=== PATIENT | female | born 1955 | race Caucasian/White ===

== ENCOUNTER 2017-06-12 09:31 | Day surgery (SDC) | payer MEDICARE, MEDICAID ==
[2017-06-12] MEDS ORDERED: TRIAMCINOLONE ACETONIDE SUSP 40 MG/ML 1 ML ONE (09:49)
[2017-06-12] MEDS ORDERED: BUPIVACAINE 0.25% 75 MG/30 ML VIAL ONE (09:49)
[2017-06-12] MEDS ORDERED: IOHEXOL 50 ML IV ONE (09:49)
[2017-06-12] MEDS ORDERED: methylPREDNISolone ACETATE 80 MG/ML VIAL ONE (09:50)
== END 2017-06-12 10:30 ==
LOC: DS 09:31
PROVIDERS: ATTEND Anesthesiology
DX: M53.3 Sacrococcygeal disorders, not elsewhere classified (principal); M47.817 Spondylosis without myelopathy or radiculopathy, lumbosacral region; M16.9 Osteoarthritis of hip, unspecified; M17.9 Osteoarthritis of knee, unspecified; M79.7 Fibromyalgia; Z86.19 Personal history of other infectious and parasitic diseases; G62.9 Polyneuropathy, unspecified; Z79.899 Other long term (current) drug therapy
CPT/HCPCS: G0260 ×5; 72170-TC; J1040; J3490; Q9967

== ENCOUNTER 2019-03-18 00:41 | Inpatient (IN) | payer MEDICARE, OTHER ==
[~2019-03-18] VITALS: Ht 154.9 cm; Wt 48.5 kg
--- NOTE | 2019-03-18 02:25 | NUR ---
GPS ADMISSION NOTES: ADMITTED A 63-YR OLD FEMALE, FROM [facility]. ON 5150 FOR DTS. PER HOLD, PATIENT ATTEMPTED TO STAB HERSELF WITH A BALL POINT PEN AND THEN WITH A TREE BRANCH. STATED " I DON'T WANT TO BE HERE ANYMORE". "I NEED TO FIND A KNIFE". "I DON'T DESERVE TO LIVE NOBODY CARES ABOUT ME". UPON FACE TO FACE ASSESSMENT, PATIENT IS ALERT AND ORIENTED X1-2, CALM, DEPRESSED MOOD, UNKEMPT, INTERACTS WHEN ENGAGED, COOPERATIVE WITH CARE, AMBULATORY WITH STEADY GAIT. PT. DENIES SI/HI/AVH AT THIS TIME. PT. WAS ADVISED OF THE HOLD. PT'S RIGHTS DISCUSSED GUIDE TO PRESCRIPTION MEDICATIONS PROVIDED. IN NO APPARENT DISTRESS NOTED. BELONGINGS WERE INVENTORIED AND CHECKED FOR CONTRABAND. PT IS UNDER THE PSYCHIATRIC CARE OF DR. CHOWDARY ORDERS OBTAINED, AND UNDER THE MEDICAL CARE OF DR. ANDRE. SKIN BODY ASSESSMENT PERFORMED. BED LOCKED AND PLACED IN LOWEST POSITION. FALL PRECAUTIONS IN PLACE. WILL CONTINUE TO MONITOR Q15 MIN ROUNDS FOR SAFETY AND BEHAVIOR.
[2019-03-18] MEDS ORDERED: MAG HYDROX/AL HYDROX/SIMETH 30 ML UDC PO PRN (03:00)
[2019-03-18] MEDS ORDERED: MAGNESIUM HYDROXIDE 30 ML UDC PO PRN (03:00)
[2019-03-18] MEDS ORDERED: BLOOD SUGAR DIAGNOSTIC 1 EACH STRIP IN ONE (03:00)
[2019-03-18] MEDS ORDERED: ACETAMINOPHEN 325 MG TABLET PO PRN (03:00)
[2019-03-18 04:59] VITALS: BP 129/80
[2019-03-18] MEDS ORDERED: clonazePAM 0.5 MG TABLET PO SCH (05:00)
[2019-03-18] MEDS ORDERED: BUPR1PAT3 TP (05:37)
[2019-03-18] MEDS ORDERED: SUBUTEX SL (05:37)
[2019-03-18] MEDS ORDERED: DOCU-141 PO (05:37)
[2019-03-18] MEDS ORDERED: BACL10TA PO (05:37)
[2019-03-18] MEDS ORDERED: CYAN-51 SL (05:37)
[2019-03-18] MEDS ORDERED: LEVE500T9 PO (05:37)
[2019-03-18] MEDS ORDERED: MELA5TAB PO (05:37)
[2019-03-18] MEDS ORDERED: DEXT1CAP3 PO (05:37)
[2019-03-18] MEDS ORDERED: PREG50CA PO (05:37)
[2019-03-18] MEDS ORDERED: IPRA4AER IH (05:37)
[2019-03-18] MEDS ORDERED: DICL100G16 TP (05:37)
[2019-03-18] MEDS ORDERED: GABA-534 PO (05:37)
[2019-03-18] MEDS ORDERED: SUMA100T PO (05:37)
[2019-03-18] MEDS ORDERED: TRAZ-252 PO (05:37)
[2019-03-18 07:42] LABS: ALBUMIN 3.4 g/dL (3.4-5.0); BILIRUBIN,TOTAL 0.6 mg/dL (0.2-1.0); CALCIUM, SERUM 8.6 mg/dL (8.5-10.1); CREATININE 0.5 mg/dL (0.6-1.3); POTASSIUM 3.9 mmol/L (3.5-5.1); TOTAL PROTEIN, SERUM 7.2 g/dL (6.4-8.2)
[2019-03-18 08:00] VITALS: BP 129/67
[2019-03-18] MEDS: NICOTINE PATCH (14MG) 14 MG PATCH.TD24 TD SCH (08:38)
[2019-03-18] MEDS: BACLOFEN (10 MG) 10 MG TABLET PO PRN ×2 (10:24→16:48)
[2019-03-18] MEDS: GABAPENTIN 300 MG CAPSULE PO PRN ×2 (10:24→16:48)
[2019-03-18] MEDS: PREGABALIN 25 MG CAPSULE PO SCH ×2 (10:53→16:48)
[2019-03-18] MEDS: LEVETIRACETAM (250 MG) 250 MG TABLET PO SCH ×2 (11:00→21:29)
--- NOTE | 2019-03-18 15:49 | NUR ---
INITIAL DISCHARGE PLAN: Patient states that she wishes to be discharged to a long term in [place] but also states that she is receptive to SNF placement and being referred to [facility]. SW will help form a safe and proper discharge in collaboration with .
[2019-03-18 16:00] VITALS: BP 141/80
[2019-03-18] MEDS ORDERED: TRAZODONE 50 MG TABLET PO PRN (16:30)
[2019-03-18] MEDS: DOCUSATE SODIUM 100 MG CAPSULE PO SCH (16:48)
[2019-03-18] MEDS: clonazePAM 0.5 MG TABLET PO PRN (17:25)
[2019-03-18] MEDS: ESCITALOPRAM OXALATE (10 MG) 10 MG TABLET PO SCH (17:25)
[2019-03-18 20:23] VITALS: BP 127/71
[2019-03-18] MEDS: ARIPIPRAZOLE 5 MG TABLET PO SCH (21:29)
[2019-03-18] MEDS ORDERED: Medication Not On Formulary EA (Melatonin 10 MG) PO SCH (22:00)
[2019-03-19 07:43] LABS: CREATININE 0.5 mg/dL (0.6-1.3)
[2019-03-19 08:00] VITALS: BP 132/74
[2019-03-19] MEDS: NICOTINE PATCH (14MG) 14 MG PATCH.TD24 TD SCH (08:23)
[2019-03-19] MEDS: LEVETIRACETAM (250 MG) 250 MG TABLET PO SCH ×2 (08:23→21:18)
[2019-03-19] MEDS: ESCITALOPRAM OXALATE (10 MG) 10 MG TABLET PO SCH (08:23)
[2019-03-19] MEDS: GABAPENTIN 300 MG CAPSULE PO PRN ×2 (08:24→16:23)
[2019-03-19] MEDS: PREGABALIN 25 MG CAPSULE PO SCH ×2 (08:24→16:23)
[2019-03-19] MEDS: DOCUSATE SODIUM 100 MG CAPSULE PO SCH ×2 (08:24→16:23)
[2019-03-19] MEDS: BACLOFEN (10 MG) 10 MG TABLET PO PRN ×2 (08:24→16:23)
[2019-03-19] MEDS: clonazePAM 0.5 MG TABLET PO PRN ×2 (08:56→16:39)
--- NOTE | 2019-03-19 15:31 | NUR ---
Group Note: SW encouraged pt to attend group therapy on 03/19/19 at 2:30pm discussing anger management for when they are in the hospital and for once they are discharged but the pt was unable to attend. Pt is sleeping and is not easily aroused.
[2019-03-19 16:00] VITALS: BP 137/75
[2019-03-19 20:00] VITALS: BP 135/86
[2019-03-19] MEDS: ARIPIPRAZOLE 5 MG TABLET PO SCH (21:17)
[2019-03-19] MEDS: TRAZODONE 50 MG TABLET PO PRN (21:18)
[2019-03-20 08:00] VITALS: BP 147/87
[2019-03-20] MEDS: DOCUSATE SODIUM 100 MG CAPSULE PO SCH ×2 (08:46→17:17)
[2019-03-20] MEDS: ESCITALOPRAM OXALATE (10 MG) 10 MG TABLET PO SCH (08:46)
[2019-03-20] MEDS: PREGABALIN 25 MG CAPSULE PO SCH ×2 (08:46→17:17)
[2019-03-20] MEDS: LEVETIRACETAM (250 MG) 250 MG TABLET PO SCH ×2 (08:47→21:54)
[2019-03-20] MEDS: clonazePAM 0.5 MG TABLET PO PRN ×2 (08:58→17:21)
[2019-03-20] MEDS: NICOTINE PATCH (14MG) 14 MG PATCH.TD24 TD SCH (08:59)
--- NOTE | 2019-03-20 09:00 | NUR ---
GPS/RN-NOTES PATIENT SCREAMING AND YELLING AT THE GREENHOUSE OR NURSERY TRANSPLANTER STATED" I WANT MY KLONOPIN YOU S NURSE, IT'S A ROUTINE MEDICATIONS". GREENHOUSE OR NURSERY TRANSPLANTER EXPLAINED THAT KLONOPIN IS PRN ORDER. PATIENT CONTINUE SCREAMING AND THREATENING TO FILE A GRIEVANCE AGAINST THE GREENHOUSE OR NURSERY TRANSPLANTER. GREENHOUSE OR NURSERY TRANSPLANTER OFFERED THE KLONOPIN PRN ORDER. KLONOPIN 0.5MG P.O GIVEN. WILL CONT. MONITORING FOR SAFETY AND BEHAVIOR.
--- NOTE | 2019-03-20 10:00 | NUR ---
GPS/RN-NOTES PATIENT IN THE DAY ROOM WATCHING TV,CALM,NO ACUTE DISTRESS NOTED.
--- NOTE | 2019-03-20 10:33 | NUR ---
WOUND CARE CONSULT: PT PRESENTS AMBULATORY AND CONTINENT WITH SCARRING TO LEGS, DRY SCAB TO LEFT HAND AND TO RT KNEE, PRESENT ON ADMISSION. NO SIGN OF INFECTION, NO DRAINAGE OR TENDERNESS NOTED. WILL SEE PRN.
--- NOTE | 2019-03-20 11:22 | NUR ---
SW spoke to the pt in her room and informed her about snf placements as she was concerned about her discharge. The SW stated that referrals will get sent out for her when it is appropriate to do so. She stated that she has important doctors appointments that she needs to keep so the SW stated that she should consider what she wants as her discharge plan to discuss with her SW.
[2019-03-20] MEDS: BACLOFEN (10 MG) 10 MG TABLET PO PRN (12:14)
--- NOTE | 2019-03-20 12:15 | NUR ---
GPS/RN-NOTES PATIENT REQUESTING BACLOFEN FOR BACK SPASM. BACLOFEN 10 MG P.O GIVEN PRN ORDER. WILL CONT. MONITORING FOR SAFETY AND BEHAVIOR.
[2019-03-20 16:00] VITALS: BP 151/92
--- NOTE | 2019-03-20 17:21 | NUR ---
GPS/RN-NOTES PATIENT REQUESTING KLONOPIN FOR ANXIETY. KLONOPIN 0.5MG P.O GIVEN PRN ORDER. WILL CONT. MONITORING FOR SAFETY AND BEHAVIOR.
--- NOTE | 2019-03-20 18:30 | NUR ---
GPS/RN-NOTES PATIENT IN THE DAY ROOM WATCHING TV ,CALM NO ACUTE DISTRESS NOTED. WILL ENDORSE TO INCOMING NURSE FOR CONTINUITY OF CARE.
[2019-03-20 20:56] VITALS: BP 133/82
[2019-03-20] MEDS: ARIPIPRAZOLE 5 MG TABLET PO SCH (21:13)
[2019-03-20] MEDS ORDERED: LEVETIRACETAM (250 MG) 250 MG TABLET PO ONE (21:48)
--- NOTE | 2019-03-20 21:54 | NUR ---
GPS-RN LEVETIRACETAM IS NOT AVAILABLE IN [facility]. NURSE TRIPOLER NOTIFIED AND PULLED OUT MED IN OTHER UNIT. ADMINISTERED KEPPRA 750MG PO ORDERED.
[2019-03-20] MEDS: TRAZODONE 50 MG TABLET PO PRN (22:04)
[2019-03-20] MEDS: TEMAZEPAM 7.5 MG CAPSULE PO PRN (22:56)
[2019-03-21 08:00] VITALS: BP 154/90
[2019-03-21] MEDS: LEVETIRACETAM (250 MG) 250 MG TABLET PO SCH ×2 (08:27→21:48)
[2019-03-21] MEDS: NICOTINE PATCH (14MG) 14 MG PATCH.TD24 TD SCH (08:27)
[2019-03-21] MEDS: DOCUSATE SODIUM 100 MG CAPSULE PO SCH ×2 (08:27→16:07)
[2019-03-21] MEDS: PREGABALIN 25 MG CAPSULE PO SCH ×2 (08:27→16:07)
[2019-03-21] MEDS: ESCITALOPRAM OXALATE (10 MG) 10 MG TABLET PO SCH (08:27)
[2019-03-21] MEDS: clonazePAM 0.5 MG TABLET PO PRN ×2 (08:32→17:48)
--- NOTE | 2019-03-21 08:35 | NUR ---
GPS/RN-NOTES PATIENT REQUESTING KLONOPIN FOR ANXIETY. KLONOPIN 0.5MG P.O GIVEN PRN ORDER. WILL CONT. MONITORING FOR SAFETY AND BEHAVIOR.
--- NOTE | 2019-03-21 09:35 | NUR ---
GPS/RN-NOTES PATIENT LAYING IN BED READING MAGAZINE,CALM,NO ACUTE DISTRESS NOTED.
[2019-03-21] MEDS: BACLOFEN (10 MG) 10 MG TABLET PO PRN (11:11)
--- NOTE | 2019-03-21 11:11 | NUR ---
GPS/RN-NOTES PATIENT REQUESTING BACLOFEN FOR BACK SPASM. BACLOFEN 10 MG P.O GIVEN PRN ORDER. WILL CONT. MONITORING FOR SAFETY AND BEHAVIOR.
--- NOTE | 2019-03-21 12:15 | NUR ---
GPS/RN-NOTES PATIENT LAYING IN BED READING MAGAZINE,CALM NO ACUTE DISTRESS NOTED.
--- NOTE | 2019-03-21 13:42 | NUR ---
GPS/RN-NOTES PATIENT CLAIMED THAT SHE IS TAKING NEURONTIN 300 MG P.O ROUTINELY FOR FIBROMYALGIA AND PERIPHERAL NEUROPATHY AND ALSO SHE'S ON COMBIVENT RESPIMAT INH PRN FOR SOB. DR. DAMIAN WAS MADE AWARE OF PATIENT'S CONCERN WITH T.O ORDER OF NEURONTIN 300MG P.O TID AND COMBIVENT RESPIMAT INH PRN. NOTED AND CARRIED OUT.
[2019-03-21] MEDS ORDERED: IPRATROPIUM/ALBUTEROL INHALER IH PRN (14:00)
[2019-03-21 16:00] VITALS: BP 125/86
[2019-03-21] MEDS ORDERED: ALBU18HF2 IH (16:00)
[2019-03-21] MEDS: GABAPENTIN 300 MG CAPSULE PO SCH (16:07)
[2019-03-21] MEDS: ALBUTEROL SULFATE IH PRN (17:49)
--- NOTE | 2019-03-21 17:50 | NUR ---
GPS/RN-NOTES PATIENT REQUESTING KLONOPIN FOR ANXIETY. KLONOPIN 0.5MG P.O GIVEN PRN ORDER. WILL CONT. MONITORING FOR SAFETY AND BEHAVIOR.
[2019-03-21 20:21] VITALS: BP 136/65
[2019-03-21] MEDS: ARIPIPRAZOLE 5 MG TABLET PO SCH (21:48)
--- NOTE | 2019-03-22 07:30 | NUR ---
PT RECEIVED RESTING COMFORTABLY IN BED. NO S/S OR C/O PAIN OR DISTRESS NOTED. SIDE RAILS UP X2, WILL CONTINUE PLAN OF CARE.
[2019-03-22 08:00] VITALS: BP 124/78
[2019-03-22] MEDS: PREGABALIN 25 MG CAPSULE PO SCH ×2 (09:16→16:55)
[2019-03-22] MEDS: DOCUSATE SODIUM 100 MG CAPSULE PO SCH ×2 (09:16→16:55)
[2019-03-22] MEDS: GABAPENTIN 300 MG CAPSULE PO SCH ×3 (09:17→16:55)
[2019-03-22] MEDS: ESCITALOPRAM OXALATE (10 MG) 10 MG TABLET PO SCH (09:17)
[2019-03-22] MEDS: LEVETIRACETAM (250 MG) 250 MG TABLET PO SCH ×2 (09:17→20:23)
[2019-03-22] MEDS: NICOTINE PATCH (14MG) 14 MG PATCH.TD24 TD SCH (09:17)
[2019-03-22] MEDS: ALBUTEROL SULFATE IH PRN (11:05)
[2019-03-22] MEDS: clonazePAM 0.5 MG TABLET PO PRN ×2 (12:09→20:24)
[2019-03-22 16:00] VITALS: BP 147/83
[2019-03-22] MEDS: BACLOFEN (10 MG) 10 MG TABLET PO PRN (17:00)
[2019-03-22 20:20] VITALS: BP 136/88
[2019-03-22] MEDS: ARIPIPRAZOLE 5 MG TABLET PO SCH (21:25)
[2019-03-22] MEDS: TRAZODONE 50 MG TABLET PO PRN ×2 (21:38)
[2019-03-23 08:00] VITALS: BP 113/74
[2019-03-23] MEDS: DOCUSATE SODIUM 100 MG CAPSULE PO SCH ×2 (08:39→17:26)
[2019-03-23] MEDS: PREGABALIN 25 MG CAPSULE PO SCH ×2 (08:39→17:26)
[2019-03-23] MEDS: LEVETIRACETAM (250 MG) 250 MG TABLET PO SCH ×2 (08:39→21:20)
[2019-03-23] MEDS: GABAPENTIN 300 MG CAPSULE PO SCH ×3 (08:40→17:26)
[2019-03-23] MEDS: ESCITALOPRAM OXALATE (10 MG) 10 MG TABLET PO SCH (08:40)
[2019-03-23] MEDS: NICOTINE PATCH (14MG) 14 MG PATCH.TD24 TD SCH (08:42)
[2019-03-23] MEDS: clonazePAM 0.5 MG TABLET PO PRN ×2 (08:45→18:43)
--- NOTE | 2019-03-23 08:45 | NUR ---
PT C/O AGITATION/. PRN KLONOPIN GIVEN
--- NOTE | 2019-03-23 10:40 | NUR ---
building construction ironworker faxed referral to [facility] [address] [facility] [id number], attention admission coordinator, to fax number .
--- NOTE | 2019-03-23 11:14 | NUR ---
PC Hearing Notification: DARLING called Dominique Coyne ([phone]) who was listed on the pts face sheet but the number was disconnected.
[2019-03-23] MEDS: ALBUTEROL SULFATE IH PRN ×2 (12:07→18:41)
[2019-03-23] MEDS: BACLOFEN (10 MG) 10 MG TABLET PO PRN (14:23)
--- NOTE | 2019-03-23 14:24 | NUR ---
PT C/O MUSCLE SPASMS. BACLOEFEN 10MG ADMINISTERED.
--- NOTE | 2019-03-23 14:53 | NUR ---
Group Note: Pt attended group therapy on 03/23/19 at 1:30pm discussing the topic of support systems for when they are in the hospital and for once they are discharged S: Pt stated, �I feel good physically, but sometimes I feel a little down from the monotony of being here. I feel good when I can play cards with my roommate, she�s a good support system for me and I think I�m a good source of support for her as well.� O: Pt was present during the group session and was engaged. Pt appeared alert and presented with a calm affect. Pt maintained appropriate eye contact and had a strong tone of voice. A: Pt expressed that she is able to find support in her roommate, and its something that she is grateful for because it helps her manage the stress she can have from being hospitalized. P: Pt will continue milieu treatment and medication stabilization.
[2019-03-23] MEDS: SUMATRIPTAN SUCCINATE 100 MG TABLET PO PRN (15:56)
--- NOTE | 2019-03-23 15:56 | NUR ---
RN NOTE: PATIENT COMPLAINING OF MIGRAINE. PRN IMITREX GIVEN.
[2019-03-23 16:00] VITALS: BP 116/70
--- NOTE | 2019-03-23 18:43 | NUR ---
PT C/O ANXIETY. 0.5 MG KLONOPIN GIVEN
[2019-03-23 19:44] VITALS: BP 125/72
[2019-03-23] MEDS: ARIPIPRAZOLE 5 MG TABLET PO SCH (21:20)
[2019-03-23] MEDS: TRAZODONE 50 MG TABLET PO PRN (21:23)
[2019-03-23] MEDS: TEMAZEPAM 7.5 MG CAPSULE PO PRN (21:28)
[2019-03-24 08:00] VITALS: BP 132/80
[2019-03-24] MEDS: PREGABALIN 25 MG CAPSULE PO SCH ×2 (08:49→16:13)
[2019-03-24] MEDS: DOCUSATE SODIUM 100 MG CAPSULE PO SCH ×2 (08:49→16:13)
[2019-03-24] MEDS: GABAPENTIN 300 MG CAPSULE PO SCH ×3 (08:49→16:13)
[2019-03-24] MEDS: ALBUTEROL SULFATE IH PRN ×3 (08:50→20:23)
[2019-03-24] MEDS: LEVETIRACETAM (250 MG) 250 MG TABLET PO SCH ×2 (08:52→21:02)
[2019-03-24] MEDS: ESCITALOPRAM OXALATE (10 MG) 10 MG TABLET PO SCH (08:52)
[2019-03-24] MEDS: clonazePAM 0.5 MG TABLET PO PRN ×3 (08:52→19:47)
[2019-03-24] MEDS: NICOTINE PATCH (14MG) 14 MG PATCH.TD24 TD SCH (08:56)
--- NOTE | 2019-03-24 08:56 | NUR ---
RN NOTE: PATIENT C/O ANXIETY/AGITATION. PRN KLONOPIN GIVEN. PATIENT ALSO C/O SOB, PRN INHALER GIVEN.
--- NOTE | 2019-03-24 11:36 | NUR ---
SW received a call from Roro, student outreach coordinator at [facility] [address] [facility] [address], stating that pt cannot be accepted due to recent suicide attempt.
--- NOTE | 2019-03-24 11:43 | NUR ---
DARLING fxaed SNF referral to Prema, clinical data coordinator at [facility] Address: [address] [place] [address] for review.
[2019-03-24] MEDS: BACLOFEN (10 MG) 10 MG TABLET PO PRN (12:23)
--- NOTE | 2019-03-24 12:23 | NUR ---
RN NOTE: PATIENT IS C/O MUSCLE SPASMS. PRN BACLOFEN GIVEN.
--- NOTE | 2019-03-24 13:40 | NUR ---
RN NOTE: PATIENT COMPLAINING OF ANXIETY, PRN KLONOPIN GIVEN. PATIENT ALSO COMPLAINING OF SOB. PRN INHALER GIVEN.
--- NOTE | 2019-03-24 14:05 | NUR ---
SW received a call from porfirio Read at at [facility] Address: [address] [place] [address] stating pt was not accepted to the facility due to her behaviors.
--- NOTE | 2019-03-24 14:30 | NUR ---
INTERVENTION: SW spoke with pt regarding her discharge plan, SW informed pt that she has been denied from 2 SNF's due to her suicidal attempt. Pt stated that she has not had any behavioral issues while in the hospital and that she wishes to be discharged to a SNF that will provide her rehabilitation and offer activities. Pt stated that she did not care where she was referred to as long as it was a good facility. SW informed pt that she would refer her to a local SNF and pt agreed. Pt denied suicidal ideation.
--- NOTE | 2019-03-24 14:55 | NUR ---
DARLING faxed SNF referral to [facility] Address: [place] [address] for review.
--- NOTE | 2019-03-24 15:31 | NUR ---
SW received a call from GT, database coordinator at [facility] Address: [place] [address] stating pt has been accepted to the facility.
[2019-03-24 15:47] VITALS: BP 111/93
[2019-03-24 19:59] VITALS: BP 114/79
[2019-03-24] MEDS: SUMATRIPTAN SUCCINATE 100 MG TABLET PO PRN (20:49)
[2019-03-24] MEDS: ARIPIPRAZOLE 5 MG TABLET PO SCH (21:03)
[2019-03-24] MEDS: TRAZODONE 50 MG TABLET PO PRN (21:30)
[2019-03-24] MEDS: TEMAZEPAM 7.5 MG CAPSULE PO PRN (22:28)
[2019-03-25 08:00] VITALS: BP 130/73
[2019-03-25] MEDS: ESCITALOPRAM OXALATE (10 MG) 10 MG TABLET PO SCH (08:43)
[2019-03-25] MEDS: DOCUSATE SODIUM 100 MG CAPSULE PO SCH ×2 (08:43→18:24)
[2019-03-25] MEDS: PREGABALIN 25 MG CAPSULE PO SCH ×2 (08:43→18:24)
[2019-03-25] MEDS: GABAPENTIN 300 MG CAPSULE PO SCH ×3 (08:44→18:24)
[2019-03-25] MEDS: LEVETIRACETAM (250 MG) 250 MG TABLET PO SCH ×2 (08:44→20:28)
[2019-03-25] MEDS: NICOTINE PATCH (14MG) 14 MG PATCH.TD24 TD SCH ×2 (08:44→08:56)
[2019-03-25] MEDS: BACLOFEN (10 MG) 10 MG TABLET PO PRN ×3 (08:59→18:34)
--- NOTE | 2019-03-25 08:59 | NUR ---
GIVEN PRN BACLOFEN.
--- NOTE | 2019-03-25 11:11 | NUR ---
GIVEN CLONOPIN FOR NERVOUSNESS. Addendum: 03/25/19 at 1231 by RENU SPENCE RN CLONOPIN ACTUALLY GIVEN AT 1111,BUT MED DOCUMENTATION ACCIDENTALLY UNDONE SO NEWLY SUBMITTED.
[2019-03-25] MEDS: clonazePAM 0.5 MG TABLET PO PRN ×3 (11:18→20:05)
--- NOTE | 2019-03-25 11:41 | NUR ---
INTERVENTION: SW spoke with pt regarding her discharge on 03/26/19 to [facility]. Pt stated that she is willing to go and agrees with discharge plan.
--- NOTE | 2019-03-25 13:17 | NUR ---
GIVEN PRN BACLOFEN.
[2019-03-25] MEDS: SUMATRIPTAN SUCCINATE 100 MG TABLET PO PRN (14:27)
--- NOTE | 2019-03-25 14:41 | NUR ---
GIVEN IMITREX FOR HEADACHE.
--- NOTE | 2019-03-25 15:10 | NUR ---
GIVEN TYLENOL FOR HEADACHE.
[2019-03-25 16:00] VITALS: BP 131/86
--- NOTE | 2019-03-25 18:34 | NUR ---
just medicated with baclofen.
[2019-03-25 19:53] VITALS: BP 158/87
[2019-03-25] MEDS: ARIPIPRAZOLE 5 MG TABLET PO SCH (21:10)
[2019-03-25] MEDS: TRAZODONE 50 MG TABLET PO PRN (21:36)
[2019-03-25] MEDS: TEMAZEPAM 7.5 MG CAPSULE PO PRN (22:21)
[2019-03-26 08:00] VITALS: BP 112/81
[2019-03-26] MEDS: DOCUSATE SODIUM 100 MG CAPSULE PO SCH (08:09)
[2019-03-26] MEDS: LEVETIRACETAM (250 MG) 250 MG TABLET PO SCH (08:09)
[2019-03-26] MEDS: clonazePAM 0.5 MG TABLET PO PRN (08:09)
[2019-03-26] MEDS: PREGABALIN 25 MG CAPSULE PO SCH (08:10)
[2019-03-26] MEDS: GABAPENTIN 300 MG CAPSULE PO SCH ×2 (08:10→12:39)
--- NOTE | 2019-03-26 08:14 | NUR ---
RN NOTE: PT C/O FEELING ANXIOUS. ADMINISTERED PRN KLONOPIN 0.5 MG PO.
[2019-03-26] MEDS: ESCITALOPRAM OXALATE (10 MG) 10 MG TABLET PO SCH (08:17)
[2019-03-26] MEDS: NICOTINE PATCH (14MG) 14 MG PATCH.TD24 TD SCH (08:17)
--- NOTE | 2019-03-26 08:19 | NUR ---
RN NOTE: PATIENT REFUSED LEXOPRO 10MG TAB PO. PATIENT STATES "IT DOES NOT HELP ME AND I TOLD THE PSYCHIATRIST". EXPLAINED THE RISK AND BENFITS, PATIENT DEMONSTRATES UNDERSTANDING.
--- NOTE | 2019-03-26 09:55 | NUR ---
DR. CHOWDARY GAVE AN ORDER TO D/C HOLD AND D/C TO [facility], TO CONTINUE SAME MEDS INCLUDING PRN AND TO FOLLOW UP WITH PSYCH AND MEDICAL DOCTORS.
--- NOTE | 2019-03-26 09:59 | NUR ---
DISCHARGE NOTE: Pt discharging at 1:00pm via [facility] to [facility] [address] [place], [address] . Pt has no family to notify. Pts mood is labile with congruent affect. Pt denied visual/auditory hallucinations and denied suicidal/homicidal ideation. For smoking cessation, patient was referred to the [employer] and [employer] [id number]. Pt will also participate in a telephone meeting with [employer] [phone] on March 27, 2019 at 8:00am. Pt will be under the care of Security Inspector: Dr Hebert Address: [address] [place] [address] Martell Address: [address] [place] [address] . The multidisciplinary exit care form was done, printed, signed, and given to the patient.
[2019-03-26] MEDS: BACLOFEN (10 MG) 10 MG TABLET PO PRN (12:42)
--- NOTE | 2019-03-26 12:43 | NUR ---
RN NOTE: PATIENT C/O MUSCLE SPAMS. BACLOFEN 10 MG TAB PO ADMINISTERED.
--- NOTE | 2019-03-26 13:46 | NUR ---
GPS/RN-NOTES PATIENT WAS DISCHARGE TO [facility] TODAY. DR. CHOWDARY AND BAMBI LAMAS AWARE AND AGREED OF PATIENT DISCHARGE.PATIENT LEFT THE UNIT IN STABLE CONDITION ALERT ORIENTED X3 AMBULATORY STEADY GAIT. PATIENT DID NOT VERBALIZED SI/HI ,DENIES VISUAL/AUDITORY HALLUCINATIONS AT THE TIME OF DISCHARGE.REPORT WAS GIVEN TO YUNIER( LEAD INVESTIGATOR).PATIENT WAS PICK BY AMBULANCE VIA GURNEY WITH TWO STAFF ASSIST. PATIENT LEFT THE UNIT WITH ALL BELONGINGS .PATIENT STRONGLY REFUSED BODY ASSESSMENT AND PICTURE TAKEN PRIOR TO DISCHARGE.
== END 2019-03-26 13:46 | DRG 885 ==
LOC: GPS 02:17
PROVIDERS: ADMIT Psychiatry & Neurology Psychiatry; ATTEND Internal Medicine
DX: F31.30 Bipolar disorder, current episode depressed, mild or moderate severity, unspecified (principal); G40.909 Epilepsy, unspecified, not intractable, without status epilepticus; I25.2 Old myocardial infarction; I25.10 Atherosclerotic heart disease of native coronary artery without angina pectoris; G43.909 Migraine, unspecified, not intractable, without status migrainosus; Z59.0 Homelessness; Z86.19 Personal history of other infectious and parasitic diseases
CPT/HCPCS: 36415; 80053-TC; 80061-TC; 82565-TC; 82962-TC; 87081-TC

== ENCOUNTER 2024-08-02 12:36 | Emergency (ER) | payer BC, OTHER ==
[~2024-08-02] VITALS: Ht 154.9 cm; Wt 59.0 kg
[~2024-08-02 12:36] MED LIST: ALBU18HF2 IH; BACL10TA PO; BUPR1PAT3 TP; CYAN-51 SL; DEXT1CAP3 PO; DICL100G16 TP; DOCU-141 PO; GABA-534 PO; LEVE500T9 PO; MELA5TAB PO; PREG50CA PO; SUMA100T PO; TRAZ-252 PO
[2024-08-02 13:09] VITALS: TEMP 97.9
[2024-08-02] MEDS ORDERED: clonazePAM 1 MG TABLET ONE ×2 (14:32→22:02)
[2024-08-02] MEDS: clonazePAM 1 MG TABLET PO ONE ×2 (14:40→22:04)
[2024-08-02 16:04] LABS: ALANINE AMINOTRANSFERASE 23 U/L (12-78); ALBUMIN 3.9 g/dL (3.4-5.0); ALCOHOL, BLOOD < 3 mg/dL (0-10); ALKALINE PHOSPHATASE 73 U/L (46-116); ASPARTATE AMINOTRANSFERASE 26 U/L (15-37); BILIRUBIN,DIRECT 0.2 mg/dL (0.0-0.2); BILIRUBIN,TOTAL 0.6 mg/dL (0.2-1.0); CALCIUM, SERUM 9.1 mg/dL (8.5-10.1); CARBON DIOXIDE 26 mmol/L (21-32); CHLORIDE 102 mmol/L (98-107); CREATININE 0.6 mg/dL (0.6-1.3); GLUCOSE 106 mg/dL (74-106); POTASSIUM 3.8 mmol/L (3.5-5.1); SODIUM SERUM 136 mmol/L (136-145); TOTAL PROTEIN, SERUM 7.2 g/dL (6.4-8.2); UREA NITROGEN, BLOOD 3 mg/dL (7-18)
[2024-08-02 16:05] LABS: ACETAMINOPHEN <10 ug/ml (10-30); SALICYLATE 1.6 mg/dL (2.8-20.0)
[2024-08-02 16:16] LABS: APPEARANCE,URINE CLEAR (CLEAR); BILIRUBIN,URINE NEGATIVE (NEGATIVE); BLOOD, URINE NEGATIVE Ery/uL (NEGATIVE); COLOR,URINE YELLOW (YELLOW); KETONES,URINE TRACE mg/dL (NEGATIVE); LEUKOCYTE ESTERASE ,URINE NEGATIVE (NEGATIVE); NITRITE, URINE NEGATIVE (NEGATIVE); PROTEIN,URINE NEGATIVE (NEGATIVE); UGLUCOSE NEGATIVE (NEGATIVE); UROBILINOGEN,URINE 0.2 EU/dL (0.2)
[2024-08-02 16:29] LABS: BASOPHILS % (AUTO) 0.3 % (0.0-2.0); EOSINOPHILS # (AUTO) 0.3 K/uL (0.0-0.7); EOSINOPHILS % (AUTO) 3.4 % (0.0-6.0); HEMATOCRIT 34 % (33-45); HEMOGLOBIN 11.5 g/dL (11.5-14.8); LYMPHOCYTES # (AUTO) 2.2 K/uL (0.8-4.8); LYMPHOCYTES % (AUTO) 25.6 % (20.0-44.0); MEAN CORPUSCULAR HEMOGLOBIN 28 PG (26.0-33.0); MEAN CORPUSCULAR HGB CONC 34 g/dl (31.0-36.0); MEAN CORPUSCULAR VOLUME 82 fL (82-100); MONOCYTES # (AUTO) 0.4 K/uL (0.1-1.30); MONOCYTES % (AUTO) 5.2 % (2.0-12.0); NEUTROPHILS # (AUTO) 5.5 K/uL (1.8-8.9); NEUTROPHILS % (AUTO) 65.5 % (43.0-81.0); PLATELET COUNT (AUTO) 326 K/uL (150-450); RED BLOOD CELL COUNT(AUTO) 4.15 MIL/uL (4.0-5.2); RED CELL DISTRIBUTION WIDTH 16.2 % (11.5-15.0); WHITE BLOOD COUNT (AUTO) 8.5 K/uL (4.3-11.0)
[2024-08-02 16:39] LABS: AMPHETAMINE, URINE NEGATIVE (NEGATIVE); BARBITURATE, URINE NEGATIVE (NEGATIVE); BENZODIAZEPINE, URINE POSITIVE (NEGATIVE); CANNABINOID, URINE POSITIVE (NEGATIVE); COCCAINE, URINE NEGATIVE (NEGATIVE); OPIATE, URINE NEGATIVE (NEGATIVE); PHENCYCLIDINE SCREEN,URINE NEGATIVE (NEGATIVE)
[2024-08-02 16:55] LABS: ADD URINE CULTURE NO; BACTERIA,URINE None seen /HPF (None Seen); MUCUS,URINE Few /LPF (None Seen); RBC,URINE 0-2 /HPF (0-2); SQUAMOUS EPITHELIAL CELL,UR 0-2 /HPF (None Seen); WBC,URINE 0-2 /HPF (0-3)
[2024-08-02] MEDS ORDERED: ACETAMINOPHEN ES 500 MG TABLET ONE (19:36)
[2024-08-02] MEDS: ACETAMINOPHEN ES 500 MG TABLET PO ONE (19:38)
[2024-08-02 21:50] VITALS: BP 119/70; O2SAT 97
== END 2024-08-02 22:52 | disposition left against medical advice (07) ==
LOC: ER 12:36
DX: F31.9 Bipolar disorder, unspecified (principal); F41.9 Anxiety disorder, unspecified; G40.909 Epilepsy, unspecified, not intractable, without status epilepticus; G89.29 Other chronic pain; I10 Essential (primary) hypertension; I25.10 Atherosclerotic heart disease of native coronary artery without angina pectoris; I25.2 Old myocardial infarction; Z79.899 Other long term (current) drug therapy; Z90.710 Acquired absence of both cervix and uterus; Z91.030 Bee allergy status; Z86.79 Personal history of other diseases of the circulatory system; Z87.19 Personal history of other diseases of the digestive system; Z20.822 Contact with and (suspected) exposure to COVID-19
CPT/HCPCS: 36415; 80048-TC; 80076-TC; 81001; 85025-TC; G0480

== ENCOUNTER 2024-08-10 12:36 | Inpatient (IN) | payer MEDICARE, OTHER ==
[~2024-08-10] VITALS: Ht 157.5 cm; Wt 60.8 kg
[2024-08-10] MEDS ORDERED: NALOXONE HCL 0.4 MG/ML AMPUL ONE (13:21)
[2024-08-10] MEDS: NALOXONE HCL 0.4 MG/ML AMPUL IV ONE ×2 (13:24→17:00)
[2024-08-10] MEDS: IV NS 0.9% 500 ML BAG IV ONE (14:30)
[2024-08-10 15:18] LABS: ABG BASE EXCESS -1.9 mmol/L (-2.0-3.0); ABG OXYGEN SATURATION 95.6 % (94.0-98.0); ABG PCO2 35.2 mmHg (32.0-45.0); ABG PH 7.417 (7.350-7.450); ABG PO2 81.4 mmHg (83.0-108.0); ABG TOTAL HEMOGLOBIN 11.5 G/dL (12.0-16.0); COHb 0.3 % (0.5-1.5); MetHb 0.1 % (0.0-1.5); O2Hb 95.2 % (94.0-97.0); SITE, ABG RIGHT RADIAL
[2024-08-10 15:30] LABS: BASOPHILS % (AUTO) 0.2 % (0.0-2.0); HEMATOCRIT 31 % (33-45); HEMOGLOBIN 10.7 g/dL (11.5-14.8); LYMPHOCYTES % (AUTO) 5.3 % (20.0-44.0); MEAN CORPUSCULAR HEMOGLOBIN 28 PG (26.0-33.0); MEAN CORPUSCULAR HGB CONC 34 g/dl (31.0-36.0); MEAN CORPUSCULAR VOLUME 82 fL (82-100); MONOCYTES # (AUTO) 0.9 K/uL (0.1-1.30); MONOCYTES % (AUTO) 4.5 % (2.0-12.0); PLATELET COUNT (AUTO) 342 K/uL (150-450); RED BLOOD CELL COUNT(AUTO) 3.82 MIL/uL (4.0-5.2); WHITE BLOOD COUNT (AUTO) 18.9 K/uL (4.3-11.0)
[2024-08-10 15:47] LABS: INR 1.01 (0.91-1.10); PARTIAL THROMBOPLASTIN TIME 29.1 SEC (24.3-34.3); PROTHROMBIN TIME 10.7 SECS (9.2-11.1)
[2024-08-10 15:48] LABS: LACTIC ACID 1.7 mmol/L (0.4-2.0)
[2024-08-10 15:54] LABS: CALCIUM, SERUM 8.9 mg/dL (8.5-10.1); CARBON DIOXIDE 27 mmol/L (21-32); CHLORIDE 104 mmol/L (98-107); CREATININE 0.6 mg/dL (0.6-1.3); GLUCOSE 129 mg/dL (74-106); POTASSIUM 3.5 mmol/L (3.5-5.1); SODIUM SERUM 138 mmol/L (136-145); UREA NITROGEN, BLOOD 5 mg/dL (7-18)
[2024-08-10 15:55] LABS: ALANINE AMINOTRANSFERASE 21 U/L (12-78); ALBUMIN 3.4 g/dL (3.4-5.0); ALKALINE PHOSPHATASE 91 U/L (46-116); ASPARTATE AMINOTRANSFERASE 57 U/L (15-37); BILIRUBIN,DIRECT 0.2 mg/dL (0.0-0.2); BILIRUBIN,TOTAL 0.9 mg/dL (0.2-1.0); TOTAL PROTEIN, SERUM 7.1 g/dL (6.4-8.2)
[2024-08-10 15:56] LABS: ACETAMINOPHEN <10 ug/ml (10-30); ALCOHOL, BLOOD < 3 mg/dL (0-10)
[2024-08-10 16:12] LABS: APPEARANCE,URINE CLEAR (CLEAR); BILIRUBIN,URINE 1+ (NEGATIVE); BLOOD, URINE 1+ Ery/uL (NEGATIVE); COLOR,URINE YELLOW (YELLOW); KETONES,URINE 3+ mg/dL (NEGATIVE); LEUKOCYTE ESTERASE ,URINE NEGATIVE (NEGATIVE); NITRITE, URINE NEGATIVE (NEGATIVE); PROTEIN,URINE TRACE mg/dl (NEGATIVE); UGLUCOSE NEGATIVE (NEGATIVE); UROBILINOGEN,URINE 0.2 EU/dL (0.2)
[2024-08-10 16:30] LABS: WBC,URINE 0-2 /HPF (0-3)
[2024-08-10 16:31] LABS: ADD URINE CULTURE NO; BACTERIA,URINE None seen /HPF (None Seen); SQUAMOUS EPITHELIAL CELL,UR 0-2 /HPF (None Seen)
[2024-08-10 16:41] LABS: AMPHETAMINE, URINE NEGATIVE (NEGATIVE); BARBITURATE, URINE NEGATIVE (NEGATIVE); COCCAINE, URINE NEGATIVE (NEGATIVE); PHENCYCLIDINE SCREEN,URINE NEGATIVE (NEGATIVE)
[2024-08-10 16:44] LABS: BENZODIAZEPINE, URINE POSITIVE (NEGATIVE); CANNABINOID, URINE POSITIVE (NEGATIVE); OPIATE, URINE POSITIVE (NEGATIVE)
[2024-08-10] MEDS ORDERED: NALOXONE PREFILLED SYRINGE 2 MG/2 ML SYRINGE ONE (16:48)
[2024-08-10] MEDS ORDERED: NALOXONE HCL 0.4 MG/ML AMPUL IV PRN (17:00)
[2024-08-10] MEDS ORDERED: Z GUARD REMEDY 4 OZ OINT TP PRN (17:00)
[2024-08-10] MEDS ORDERED: ONDANSETRON HCL/PF 4 MG/2 ML VIAL IVP PRN (17:00)
[2024-08-10] MEDS ORDERED: MAGNESIUM HYDROXIDE 30 ML UDC PO PRN (17:00)
[2024-08-10] MEDS ORDERED: MAG HYDROX/AL HYDROX/SIMETH 30 ML UDC PO PRN (17:00)
[2024-08-10] MEDS: IV NS 0.9% 1,000 ML BAG IV ONE (17:01)
[2024-08-10] MEDS: PIPERACILLIN /TAZOBACTAM 3.375 G in IV D5W 50 ML IV ONE (17:02)
[2024-08-10] MEDS: ENOXAPARIN SODIUM 40 MG/0.4 ML DISP.SYRIN SQ SCH (21:08)
[2024-08-10] MEDS: IV NS 0.9% 1,000 ML IV PRN (21:12)
[2024-08-10] MEDS: PIPERACILLIN /TAZOBACTAM 3.375 G in IV D5W 100 ML IV SCH (21:43)
[2024-08-11 04:31] VITALS: BP 134/77; TEMP 98.1; O2SAT 97
[2024-08-11 08:00] VITALS: BP 129/70; TEMP 98; O2SAT 94
[2024-08-11 08:26] LABS: HEMATOCRIT 27 % (33-45); HEMOGLOBIN 9.3 g/dL (11.5-14.8); LYMPHOCYTES # (AUTO) 1.1 K/uL (0.8-4.8); MEAN CORPUSCULAR HEMOGLOBIN 28 PG (26.0-33.0); MEAN CORPUSCULAR HGB CONC 35 g/dl (31.0-36.0); MEAN CORPUSCULAR VOLUME 81 fL (82-100); MONOCYTES # (AUTO) 0.8 K/uL (0.1-1.30); MONOCYTES % (AUTO) 4.5 % (2.0-12.0); NEUTROPHILS # (AUTO) 16.2 K/uL (1.8-8.9); NEUTROPHILS % (AUTO) 89.5 % (43.0-81.0); PLATELET COUNT (AUTO) 319 K/uL (150-450); RED BLOOD CELL COUNT(AUTO) 3.32 MIL/uL (4.0-5.2); WHITE BLOOD COUNT (AUTO) 18.1 K/uL (4.3-11.0)
[2024-08-11 08:30] LABS: CALCIUM, SERUM 8.4 mg/dL (8.5-10.1); CREATININE 0.5 mg/dL (0.6-1.3); MAGNESIUM 1.9 mg/dL (1.8-2.4); PHOSPHORUS 2.4 mg/dL (2.5-4.9); POTASSIUM 3.1 mmol/L (3.5-5.1)
[2024-08-11] MEDS: FUROSEMIDE 20 MG/2 ML VIAL IV ONE (08:34)
[2024-08-11] MEDS: VANCOMYCIN HCL 1.25 GM in IV D5W 250 ML IV ONE (10:00)
[2024-08-11 12:00] VITALS: BP 134/65; TEMP 98.6; O2SAT 96
[2024-08-11 16:00] VITALS: BP 121/68; TEMP 98.2; O2SAT 98
[2024-08-11] MEDS ORDERED: IPRATROPIUM NEB FS 0.5 MG/2.5 ML AMPUL.NEB NEB PRN (16:00)
[2024-08-11] MEDS ORDERED: ALBUTEROL HALF STRENGTH 1.25 MG/3 ML VIAL.NEB NEB PRN (16:00)
[2024-08-11] MEDS: K PHOS NEUTRAL 250 MG TABLET PO ONE (16:17)
[2024-08-11] MEDS: POTASSIUM CHLORIDE 20 MEQ TAB.PRT.SR PO SCH (16:17)
[2024-08-11 16:35] LABS: THYROID STIMULATING HORMONE 0.52 uIU/mL (0.358-3.74)
[2024-08-11 16:57] LABS: ABG BASE EXCESS 0.2 mmol/L (-2.0-3.0); ABG OXYGEN SATURATION 90.3 % (94.0-98.0); ABG PCO2 29.2 mmHg (32.0-45.0); ABG PH 7.506 (7.350-7.450); ABG PO2 54.9 mmHg (83.0-108.0); ABG TOTAL HEMOGLOBIN 10.5 G/dL (12.0-16.0); COHb 0.1 % (0.5-1.5); MetHb 0.1 % (0.0-1.5); O2Hb 90.1 % (94.0-97.0); SITE, ABG RIGHT RADIAL
[2024-08-11 20:00] VITALS: BP 109/63; TEMP 98.2; O2SAT 95
[2024-08-11] MEDS: VANCOMYCIN 750 MG in IV D5W 250 ML IV SCH (20:30)
[2024-08-12] VITALS: BP 116/65; TEMP 98.1; O2SAT 96
[2024-08-12 04:00] VITALS: BP 112/61; TEMP 98.2; O2SAT 95
[2024-08-12 08:00] VITALS: BP 118/64; TEMP 97.4; O2SAT 96
[2024-08-12 08:01] LABS: BASOPHILS % (AUTO) 0.2 % (0.0-2.0); EOSINOPHILS # (AUTO) 0.1 K/uL (0.0-0.7); EOSINOPHILS % (AUTO) 0.4 % (0.0-6.0); HEMATOCRIT 26 % (33-45); LYMPHOCYTES # (AUTO) 1.8 K/uL (0.8-4.8); LYMPHOCYTES % (AUTO) 9.4 % (20.0-44.0); MEAN CORPUSCULAR HEMOGLOBIN 28 PG (26.0-33.0); MEAN CORPUSCULAR HGB CONC 35 g/dl (31.0-36.0); MEAN CORPUSCULAR VOLUME 81 fL (82-100); MONOCYTES # (AUTO) 1.1 K/uL (0.1-1.30); MONOCYTES % (AUTO) 5.5 % (2.0-12.0); NEUTROPHILS # (AUTO) 16.5 K/uL (1.8-8.9); NEUTROPHILS % (AUTO) 84.5 % (43.0-81.0); PLATELET COUNT (AUTO) 340 K/uL (150-450); RED BLOOD CELL COUNT(AUTO) 3.23 MIL/uL (4.0-5.2); RED CELL DISTRIBUTION WIDTH 15.8 % (11.5-15.0); WHITE BLOOD COUNT (AUTO) 19.5 K/uL (4.3-11.0)
[2024-08-12 08:07] LABS: ALBUMIN 2.6 g/dL (3.4-5.0); BILIRUBIN,TOTAL 1.3 mg/dL (0.2-1.0); CREATININE 1.3 mg/dL (0.6-1.3); MAGNESIUM 1.9 mg/dL (1.8-2.4); PHOSPHORUS 3.2 mg/dL (2.5-4.9); POTASSIUM 3.2 mmol/L (3.5-5.1); TOTAL PROTEIN, SERUM 6.2 g/dL (6.4-8.2)
[2024-08-12] MEDS: POTASSIUM CHLORIDE 20 MEQ TAB.PRT.SR PO SCH (10:45)
[2024-08-12 12:00] VITALS: BP 126/76; TEMP 97.9; O2SAT 98
[2024-08-12 13:08] LABS: FOLIC ACID > 20.0 ng/mL (>3.0)
[2024-08-12 16:00] VITALS: BP 129/89; TEMP 98; O2SAT 99
[2024-08-12 20:00] VITALS: BP 121/76; TEMP 99.1; O2SAT 96
[2024-08-12] MEDS: risperiDONE 0.25 MG TABLET PO SCH (21:59)
[2024-08-12] MEDS: ACETAMINOPHEN 325 MG TABLET PO PRN (22:35)
[2024-08-13] VITALS: BP 139/89; TEMP 98.6; O2SAT 95
[2024-08-13 04:00] VITALS: BP 129/86; TEMP 98.8; O2SAT 96
[2024-08-13 07:26] LABS: CALCIUM, SERUM 8.7 mg/dL (8.5-10.1); CREATININE 1.4 mg/dL (0.6-1.3); POTASSIUM 3.4 mmol/L (3.5-5.1)
[2024-08-13 08:00] VITALS: BP 132/69; TEMP 98.6; O2SAT 95
[2024-08-13 10:54] LABS: ABG BASE EXCESS -1.2 mmol/L (-2.0-3.0); ABG OXYGEN SATURATION 97.6 % (94.0-98.0); ABG PCO2 30.5 mmHg (32.0-45.0); ABG PH 7.474 (7.350-7.450); ABG PO2 104.7 mmHg (83.0-108.0); ABG TOTAL HEMOGLOBIN 9.1 G/dL (12.0-16.0); COHb 0.3 % (0.5-1.5); MetHb 0.2 % (0.0-1.5); O2Hb 97.1 % (94.0-97.0); SITE, ABG RIGHT RADIAL
[2024-08-13 12:00] VITALS: BP 126/73; TEMP 98.8; O2SAT 98
[2024-08-13] MEDS: POTASSIUM CHLORIDE 20 MEQ TAB.PRT.SR PO ONE (12:21)
[2024-08-13 16:00] VITALS: BP 135/66; TEMP 98; O2SAT 98
[2024-08-13] MEDS: LORAZEPAM INJ 2 MG/ML VIAL IV PRN (16:51)
[2024-08-13 20:00] VITALS: BP 147/79; TEMP 99; TEMP 99.9; O2SAT 94
[2024-08-13] MEDS ORDERED: LORAZEPAM INJ 2 MG/ML VIAL IV PRN (21:00)
[2024-08-14] VITALS: BP_SYST 128; BP_DIAS 74; BP_DIAS 84; TEMP 99.3; O2SAT 98
[2024-08-14 04:00] VITALS: BP 137/80; TEMP 99; O2SAT 95
[2024-08-14 06:54] LABS: BASOPHILS % (AUTO) 0.1 % (0.0-2.0); EOSINOPHILS # (AUTO) 0.1 K/uL (0.0-0.7); EOSINOPHILS % (AUTO) 0.6 % (0.0-6.0); HEMATOCRIT 25 % (33-45); HEMOGLOBIN 8.6 g/dL (11.5-14.8); LYMPHOCYTES # (AUTO) 0.8 K/uL (0.8-4.8); LYMPHOCYTES % (AUTO) 6.9 % (20.0-44.0); MEAN CORPUSCULAR HEMOGLOBIN 28 PG (26.0-33.0); MEAN CORPUSCULAR HGB CONC 35 g/dl (31.0-36.0); MEAN CORPUSCULAR VOLUME 81 fL (82-100); MONOCYTES % (AUTO) 8.5 % (2.0-12.0); NEUTROPHILS # (AUTO) 9.8 K/uL (1.8-8.9); NEUTROPHILS % (AUTO) 83.9 % (43.0-81.0); PLATELET COUNT (AUTO) 356 K/uL (150-450); RED BLOOD CELL COUNT(AUTO) 3.07 MIL/uL (4.0-5.2); RED CELL DISTRIBUTION WIDTH 15.6 % (11.5-15.0); WHITE BLOOD COUNT (AUTO) 11.6 K/uL (4.3-11.0)
[2024-08-14 07:03] LABS: ALBUMIN 2.3 g/dL (3.4-5.0); CALCIUM, SERUM 8.6 mg/dL (8.5-10.1); CREATININE 1.4 mg/dL (0.6-1.3); MAGNESIUM 2.2 mg/dL (1.8-2.4); PHOSPHORUS 2.6 mg/dL (2.5-4.9); POTASSIUM 2.9 mmol/L (3.5-5.1); TOTAL PROTEIN, SERUM 6.1 g/dL (6.4-8.2)
[2024-08-14 08:00] VITALS: BP 127/75; TEMP 97.9; O2SAT 95
[2024-08-14] MEDS: LEVETIRACETAM (500MG) 500 MG in IV NS 0.9% 100 ML IV SCH (09:31)
[2024-08-14 12:00] VITALS: BP 132/66; TEMP 97.3; O2SAT 95
[2024-08-14] MEDS: POTASSIUM CL. PREMIX PERIPHER. 50 ML IV SCH (13:10)
[2024-08-14 16:00] VITALS: BP 114/86; TEMP 97.9; O2SAT 95
[2024-08-14 20:00] VITALS: BP 144/60; TEMP 98.7; O2SAT 98
[2024-08-15] VITALS: BP 153/80; TEMP 98.2; O2SAT 94
[2024-08-15 04:00] VITALS: BP 155/80; TEMP 98.5; O2SAT 95
[2024-08-15 06:57] LABS: CALCIUM, SERUM 8.4 mg/dL (8.5-10.1); CREATININE 1.2 mg/dL (0.6-1.3); PHOSPHORUS 3.1 mg/dL (2.5-4.9); POTASSIUM 3.2 mmol/L (3.5-5.1)
[2024-08-15 06:58] LABS: ALBUMIN 2.3 g/dL (3.4-5.0); MAGNESIUM 2.4 mg/dL (1.8-2.4); TOTAL PROTEIN, SERUM 6.2 g/dL (6.4-8.2)
[2024-08-15 06:59] LABS: BASOPHILS % (AUTO) 0.1 % (0.0-2.0); EOSINOPHILS # (AUTO) 0.3 K/uL (0.0-0.7); EOSINOPHILS % (AUTO) 2.5 % (0.0-6.0); HEMATOCRIT 26 % (33-45); HEMOGLOBIN 8.5 g/dL (11.5-14.8); LYMPHOCYTES # (AUTO) 1.2 K/uL (0.8-4.8); LYMPHOCYTES % (AUTO) 9.5 % (20.0-44.0); MEAN CORPUSCULAR HEMOGLOBIN 27 PG (26.0-33.0); MEAN CORPUSCULAR HGB CONC 33 g/dl (31.0-36.0); MEAN CORPUSCULAR VOLUME 83 fL (82-100); MONOCYTES # (AUTO) 1.2 K/uL (0.1-1.30); MONOCYTES % (AUTO) 8.8 % (2.0-12.0); NEUTROPHILS # (AUTO) 10.3 K/uL (1.8-8.9); NEUTROPHILS % (AUTO) 79.1 % (43.0-81.0); PLATELET COUNT (AUTO) 402 K/uL (150-450); RED CELL DISTRIBUTION WIDTH 15.7 % (11.5-15.0); WHITE BLOOD COUNT (AUTO) 13.1 K/uL (4.3-11.0)
[2024-08-15 08:00] VITALS: BP 151/86; TEMP 99.3; O2SAT 93
[2024-08-15] MEDS: POTASSIUM CHLORIDE 20 MEQ POWDER PACKET PO SCH (08:52)
[2024-08-15 09:36] LABS: CREATININE, URINE 86.6 MG/DL (30.0-125.0); URINE TOTAL PROTEIN 63.7 mg/dL (0-11.9)
[2024-08-15] MEDS: VANCOMYCIN 1 GM in IV D5W 250ml IV SCH (09:52)
[2024-08-15 14:00] VITALS: BP 140/80; TEMP 98; O2SAT 94
[2024-08-15 15:10] LABS: METHYLMALONIC ACID 109 nmol/L (0-378)
[2024-08-15] MEDS ORDERED: ENSURE ENLIVE CHOC 237 ML CAN PO SCH (17:00)
[2024-08-15 19:10] LABS: VITAMIN B1 THIAMINE,WB 191.3 nmol/L (66.5-200.0)
== END 2024-08-15 16:22 | DRG 562 ==
LOC: ER 12:50 → TELE1 16:52 → MEDSG1 08-15 11:28
PROVIDERS: ADMIT Internal Medicine
DX: S42.202A Unspecified fracture of upper end of left humerus, initial encounter for closed fracture (principal); J96.01 Acute respiratory failure with hypoxia; J81.1 Chronic pulmonary edema; G93.40 Encephalopathy, unspecified; G40.109 Localization-related (focal) (partial) symptomatic epilepsy and epileptic syndromes with simple partial seizures, not intractable, without status epilepticus; F31.9 Bipolar disorder, unspecified; Y92.9 Unspecified place or not applicable; I10 Essential (primary) hypertension; G89.4 Chronic pain syndrome; Z98.891 History of uterine scar from previous surgery; Z20.822 Contact with and (suspected) exposure to COVID-19; Z98.890 Other specified postprocedural states; Z91.030 Bee allergy status; Z79.51 Long term (current) use of inhaled steroids; Z79.899 Other long term (current) drug therapy; W18.30XA Fall on same level, unspecified, initial encounter; Z86.79 Personal history of other diseases of the circulatory system; F29 Unspecified psychosis not due to a substance or known physiological condition; F41.9 Anxiety disorder, unspecified; F19.10 Other psychoactive substance abuse, uncomplicated; G62.9 Polyneuropathy, unspecified; D72.829 Elevated white blood cell count, unspecified; F39 Unspecified mood [affective] disorder; G31.84 Mild cognitive impairment of uncertain or unknown etiology; I48.91 Unspecified atrial fibrillation; Z86.19 Personal history of other infectious and parasitic diseases; M89.8X9 Other specified disorders of bone, unspecified site; Z91.199 Patient's noncompliance with other medical treatment and regimen due to unspecified reason; Z90.710 Acquired absence of both cervix and uterus; Z78.1 Physical restraint status; E87.6 Hypokalemia; D64.9 Anemia, unspecified
CPT/HCPCS: 36415; 36600; 70450-TC; 71045-TC; 73030-TC; 73060-TC; 80048-TC; 80053-TC; 80076-TC; 80202-TC; 81001; 82570-TC; 82607-TC; 82803-TC; 82962-TC; 83605-TC; 83735-TC; 83921; 84100-TC; 84300-TC; 84425; 84443-TC; 84484-TC; 85025-TC; 85730-TC; 87040-TC; 87081-TC; 95819-TC; 97110-TC; 97112-TC; 97116-TC; 97530-TC; 97535-TC; A4223; G0378; G0480; J1650; J1940; J1953; J2060; J2310; J2543; J3370; J3371; J3480; J7030; J7050; J7060